=== PATIENT | female | born 1965 | race Caucasian/White ===

== ENCOUNTER 2016-05-08 18:30 | Emergency (ER) | payer MEDICARE, MEDICAID ==
[~2016-05-08] VITALS: Ht 174 cm; Wt 100.0 kg
[~2016-05-08 18:30] MED LIST: HYDR-3535 PO; LIPI80TA PO; MOBI15TA PO; OXYB15TA PO; PAXI25TA5 PO; ROTI4DIS T-DERMAL; VITA10004 PO; ZANA4CAP PO
[2016-05-08 18:32] VITALS: BP 139/76; PULSE 77; RESP 17; TEMP 98.7; O2SAT 97
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
[2016-05-08] MEDS ORDERED: KETOROLAC TROMETHAMINE 60 MG/2 ML (IM) VIAL IM ONE (18:45)
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
--- NOTE | 2016-05-08 19:26 | RADHPO ---
EXAM DATE/TIME: 05/08/2016 19:10 [facility] COMPARISON: ANKLE LEFT LIMITED (AP&LAT), July 06, 2013, 18:34. INDICATIONS : Left ankle pain after falling tonight. MEDICAL HISTORY : None. SURGICAL HISTORY : None. ENCOUNTER: Initial ACUITY: 1 day PAIN SCORE: 8/10 LOCATION: Left lateral ankle. FINDINGS: There is an unusual fracture laterally of the distal tibia that involves the lateral corner region of the tibiotalar joint and also the distal tib-fib syndesmosis. The estimated 19 mm fracture fragment is displaced anteriorly and laterally several millimeters. There is also a nondisplaced fracture of t he medial malleolus. CONCLUSION: Acute fractures medially and laterally of the distal tibia as described above. The lateral fracture i s mildly displaced. Alon Villalba MD on May 08, 2016 at 19:22 Board Certified Radiologist. This report was verified electronically.
[2016-05-08] MEDS ORDERED: ACETAMINOPHEN/HYDROcodone 325 MG/7.5 MG TAB PO ONE (19:45)
--- NOTE | 2016-05-08 20:38 | RADHPO ---
EXAM DATE/TIME: 05/08/2016 20:08 [facility] COMPARISON: ANKLE LEFT COMPLETE ([id number]), May 08, 2016, 19:10. INDICATIONS : Bimalleolar fracture. RADIATION DOSE: 6.00 CTDIvol (mGy) MEDICAL HISTORY : Hypertension. Chronic obstructive pulmonary disease. SURGICAL HISTORY : Tubal ligation. ENCOUNTER: Initial ACUITY: 1 day PAIN SCALE: 10/10 LOCATION: Bilateral ankle TECHNIQUE: Volumetric scanning of the ankle was performed. Using automated exposure control and adjustment of t he mA and/or kV according to patient size, radiation dose was kept as low as reasonably achievable to obtain optimal diagnostic quality images. FINDINGS: There is an intra-articular fracture anterolaterally of the distal tibia. There is an approximately 1 1 x 16 x 13 mm fracture fragment that has mild anterior and lateral displacement. There is in between 3 and 5 mm of separation at the level of the articular surface. Step-off is minimal. The fracture in volves the distal tib-fib syndesmosis. There is a nondisplaced oblique transverse fracture of the medial malleolus. Distal fibula is intact. No subluxation of the ankle joint. There is a small spur along the posterior margin of the tibial caron fond and. CONCLUSION: Fractured distal tibia including a nondisplaced fracture of the medial malleolus and a mildly displac ed fracture of the anterolateral corner of the bone. Please see above. Alon Villalba MD on May 08, 2016 at 20:31 Board Certified Radiologist. This report was verified electronically.
[2016-05-08] MEDS ORDERED: HYDR-3533 PO ×2 (21:01→21:02)
== END 2016-05-08 21:45 | disposition home or self-care (01) ==
LOC: PHEFT 18:30
DX: S82.842A Displaced bimalleolar fracture of left lower leg, initial encounter for closed fracture (principal); R51 Headache; H53.8 Other visual disturbances; I10 Essential (primary) hypertension; E78.00 Pure hypercholesterolemia, unspecified; F17.200 Nicotine dependence, unspecified, uncomplicated; Z87.09 Personal history of other diseases of the respiratory system; Z87.39 Personal history of other diseases of the musculoskeletal system and connective tissue; Z86.2 Personal history of diseases of the blood and blood-forming organs and certain disorders involving the immune mechanism; Z86.59 Personal history of other mental and behavioral disorders; Z86.79 Personal history of other diseases of the circulatory system; Z86.69 Personal history of other diseases of the nervous system and sense organs; W19.XXXA Unspecified fall, initial encounter
CPT/HCPCS: 29515; 70450; 73610; 73700; 96372; 99284; E0113; J1885

== ENCOUNTER 2016-08-04 15:27 | Emergency (ER) | payer MEDICARE, MEDICAID ==
[~2016-08-04 15:27] MED LIST changes: +HYDR-3533 PO
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
[2016-08-04 15:32] VITALS: BP 142/73; PULSE 90; RESP 20; TEMP 98.9; O2SAT 97
--- NOTE | 2016-08-04 16:28 | RADHPO ---
EXAM DATE/TIME: 08/04/2016 15:43 [facility] COMPARISON: No previous studies available for comparison. INDICATIONS : Fell, complains of left knee pain. MEDICAL HISTORY : None. SURGICAL HISTORY : None. ENCOUNTER: Initial ACUITY: 2 days PAIN SCORE: 9/10 LOCATION: Left knee FINDINGS: Four view examination of the left knee demonstrates no evidence of fracture or dislocation. Bony min eralization is normal. The articular surfaces are intact. The suprapatellar soft tissues have a nor mal configuration. CONCLUSION: No acute disease. Alon Goddard MD on August 04, 2016 at 16:26 Board Certified Radiologist. This report was verified electronically.
--- NOTE | 2016-08-04 16:33 | RADHPO ---
EXAM DATE/TIME: 08/04/2016 15:41 [facility] COMPARISON: CT ANKLE LEFT W/O CONTRAST, May 08, 2016, 20:08. INDICATIONS : Fell, complains of left foot pain. MEDICAL HISTORY : None. SURGICAL HISTORY : None. ENCOUNTER: Initial ACUITY: 2 days PAIN SCORE: 9/10 LOCATION: Left foot FINDINGS: There is fracturing of the distal aspects of the 2nd through 5th metatarsals with some lateral angula tion of the distal fragments at the 3rd and 4th and to a lesser degree 2nd metatarsals. The bones an d joints appear otherwise normally aligned. The 5th metatarsal fracture appears to extend into the m edial aspect of the 5th MTP joint. The patient does have a lucency seen at the base of the medial ma lleolus. The patient has a history of a prior ankle fracture. CONCLUSION: Acute appearing 2nd through 5th distal metatarsal fractures. Alon Goddard MD on August 04, 2016 at 16:24 Board Certified Radiologist. This report was verified electronically.
[2016-08-04] MEDS ORDERED: HYDR-3533 PO (16:53)
== END 2016-08-04 17:27 | disposition home or self-care (01) ==
LOC: PHED 15:27
DX: S92.322A Displaced fracture of second metatarsal bone, left foot, initial encounter for closed fracture (principal); S92.332A Displaced fracture of third metatarsal bone, left foot, initial encounter for closed fracture; S92.352A Displaced fracture of fifth metatarsal bone, left foot, initial encounter for closed fracture; S92.342A Displaced fracture of fourth metatarsal bone, left foot, initial encounter for closed fracture; S83.92XA Sprain of unspecified site of left knee, initial encounter; W01.0XXA Fall on same level from slipping, tripping and stumbling without subsequent striking against object, initial encounter; E78.00 Pure hypercholesterolemia, unspecified; I10 Essential (primary) hypertension; J44.9 Chronic obstructive pulmonary disease, unspecified; G11.9 Hereditary ataxia, unspecified; F17.210 Nicotine dependence, cigarettes, uncomplicated
CPT/HCPCS: 29515; 73564; 73630; 99283; E0113

== ENCOUNTER 2017-05-27 19:51 | Emergency (ER) | payer MEDICARE, MEDICAID ==
[~2017-05-27] VITALS: Ht 174 cm; Wt 110.0 kg
[~2017-05-27 19:51] MED LIST changes: -OXYB15TA PO; +PARO25CR PO; -PAXI25TA5 PO
[2017-05-27 20:19] VITALS: BP 135/78; PULSE 80; RESP 20; TEMP 98.5; O2SAT 96
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
--- NOTE | 2017-05-27 21:01 | RADRPT ---
EXAM DATE/TIME: 05/27/2017 20:30 [facility] COMPARISON: FOOT RIGHT COMPLETE ([id number]), May 27, 2017, 20:30. INDICATIONS : Right lateral ankle pain after tripping over a concrete divider. MEDICAL HISTORY : None. SURGICAL HISTORY : None. ENCOUNTER: Initial ACUITY: 2 days PAIN SCORE: 5/10 LOCATION: Right ankle. FINDINGS: Three view exam was performed of the right ankle. The bony structures are in normal alignment. No e vidence of fracture, dislocation, or soft tissue swelling. The ankle mortise is intact. No radiopaq ue foreign bodies are seen. Bony mineralization is normal. CONCLUSION: No evidence of right ankle fracture. Alon Villalba MD on May 27, 2017 at 20:59 Board Certified Radiologist. This report was verified electronically.
--- NOTE | 2017-05-27 21:04 | RADRPT ---
EXAM DATE/TIME: 05/27/2017 20:30 [facility] COMPARISON: No previous studies available for comparison. INDICATIONS : Right dorsal and lateral foot pain after tripping over a concrete divider. MEDICAL HISTORY : None. SURGICAL HISTORY : None. ENCOUNTER: Initial ACUITY: 2 days PAIN SCORE: 5/10 LOCATION: Right foot. FINDINGS: There are minimally displaced, mildly comminuted fractures in the neck region of the fourth and fifth metatarsals. Questionable nondisplaced fractures in a similar location of the second and third metat arsals. There is overlying soft tissue swelling. No subluxations or definite intra-articular fracture . CONCLUSION: Minimally displaced fractures of the necks of the fourth and fifth metatarsals. There are questionabl e nondisplaced fractures distally of the second and third metatarsals as well. Alon Villalba MD on May 27, 2017 at 21:00 Board Certified Radiologist. This report was verified electronically.
[2017-05-27] MEDS ORDERED: DICL75TA PO (21:20)
[2017-05-27] MEDS ORDERED: ACETAMINOPHEN/HYDROcodone 325 MG/10 MG TAB PO ONE (21:30)
== END 2017-05-27 21:45 | disposition home or self-care (01) ==
LOC: PHEFT 19:51
DX: S92.344A Nondisplaced fracture of fourth metatarsal bone, right foot, initial encounter for closed fracture (principal); W22.09XA Striking against other stationary object, initial encounter; Y92.481 Parking lot as the place of occurrence of the external cause; E78.00 Pure hypercholesterolemia, unspecified; J44.9 Chronic obstructive pulmonary disease, unspecified; I10 Essential (primary) hypertension; G11.8 Other hereditary ataxias; F17.210 Nicotine dependence, cigarettes, uncomplicated; F32.9 Major depressive disorder, single episode, unspecified
CPT/HCPCS: 29515; 73610; 73630; 99283; E0113